=== PATIENT | female | born 1955 | race Caucasian/White ===

== ENCOUNTER 2017-02-01 20:46 | Emergency (ER) | payer OTHER ==
[2017-02-01 20:51] VITALS: BP 176/77; PULSE 85; RESP 18; TEMP 98.2
[2017-02-01] MEDS ORDERED: SULFAMETHOX-TMP 800-160MG 1 EACH TAB PO STA (20:58)
[2017-02-01] MEDS ORDERED: SULFAMETH-TMP DS STARTER PACK 2 TAB BTL PO STA (20:59)
[2017-02-01] MEDS ORDERED: CEPHALEXIN 500 MG CAP PO STA (20:59)
[2017-02-01] MEDS ORDERED: CEPHALEXIN 500MG STARTER PACK 4 CAP BTL PO STA (20:59)
--- NOTE | 2017-02-01 21:02 | ED ---
General Adult HPI - General Chief complaint: Extremity Problem,Nontraumatic Stated complaint: toe infection Time Seen by Provider: 02/01/17 20:51 Source: patient, RN notes reviewed, old records reviewed Mode of arrival: ambulatory Limitations: no limitations - History of Present Illness Initial comments: This is a 62-year-old female ER for evaluation of foot pain. Left foot pain. Left middle toe pain. Patient cyanosis pain mouth last week and then noticed severe pain starting today. No fevers. Patient has no history of diabetes no history of fever infections. Patient has no other complaints. Patient did notice travel history and stated that the travel the pain started to get worse that she was driving her car home. No sick contacts. No history of MRSA. - Related Data Home Medications Medication Instructions Recorded Confirmed Omeprazole [PriLOSEC] 20 mg PO AC-BRKFST PRN 05/19/15 05/19/15 Previous Rx's Medication Instructions Recorded Aspirin 325 mg PO DAILY #30 tab 05/21/15 Atorvastatin [Lipitor] 80 mg PO HS #30 tab 05/21/15 Clopidogrel [Plavix] 75 mg PO DAILY #30 tab 05/21/15 Lisinopril [Zestril] 2.5 mg PO DAILY@1200 #30 tab 05/21/15 Metoprolol Tartrate [Lopressor] 12.5 mg PO BID #60 tab 05/21/15 Nitroglycerin Sl Tabs [Nitrostat] 0.4 mg SUBLINGUAL Q5M PRN #25 tab 05/21/15 Cephalexin [Keflex] 500 mg PO Q8HR #30 cap 02/01/17 Sulfamethox-Tmp 800-160Mg [Bactrim 2 tab PO Q12HR #28 tab 02/01/17 DS 800-160 mg] Allergies Allergy/AdvReac Type Severity Reaction Status Date / Time aspirin AdvReac Nausea Verified 02/01/17 20:50 Review of Systems ROS Statement: Those systems with pertinent positive or pertinent negative responses have been documented in the HPI. ROS Other: All systems not noted in ROS Statement are negative. Past Medical History Past Medical History: Chest Pain / Angina, GERD/Reflux, Myocardial Infarction ( [place]) Additional Past Medical History / Comment(s): dx with and treated for TB History of Any Multi-Drug Resistant Organisms: None Reported Past Surgical History: Orthopedic Surgery Past Anesthesia/Blood Transfusion Reactions: No Reported Reaction Past Psychological History: No Psychological Hx Reported Smoking Status: Current every day smoker Past Alcohol Use History: Daily Additional Past Alcohol Use History / Comment(s): approx 5-8 beers per day Past Drug Use History: None Reported - Past Family History Mother History Unknown: Yes General Exam Limitations: no limitations General appearance: alert, in no apparent distress Head exam: Present: atraumatic, normocephalic, normal inspection Eye exam: Present: normal appearance, PERRL, EOMI. Absent: scleral icterus, conjunctival injection, periorbital swelling ENT exam: Present: normal exam, mucous membranes moist Neck exam: Present: normal inspection. Absent: tenderness, meningismus, lymphadenopathy Respiratory exam: Present: normal lung sounds bilaterally. Absent: respiratory distress, wheezes, rales, rhonchi, stridor Cardiovascular Exam: Present: regular rate, normal rhythm, normal heart sounds. Absent: systolic murmur, diastolic murmur, rubs, gallop, clicks GI/Abdominal exam: Present: soft, normal bowel sounds. Absent: distended, tenderness, guarding, rebound, rigid Extremities exam: Present: normal inspection, full ROM, normal capillary refill , other (Left great toe cellulitis with abscess, no streaking up foot). Absent : tenderness, pedal edema, joint swelling, calf tenderness Back exam: Present: normal inspection Neurological exam: Present: alert, oriented X3, CN II-XII intact Psychiatric exam: Present: normal affect, normal mood Skin exam: Present: warm, dry, intact, normal color. Absent: rash Course Vital Signs 02/01/17 20:47 Temperature 98.2 F Pulse Rate 85 Respiratory 18 Rate Blood Pressure 176/77 O2 Sat by Pulse 100 Oximetry - Reevaluation(s) Reevaluation #1: 02/01/17 21:01 Patient consult regarding wound care. Will return tomorrow if symptoms are not improving Procedures - Incision & Drainage Consent Obtained: verbal consent Time Out Performed?: Yes Site: foot I&D Cleaning Method: Betadine Scalpel Used: #11 Irrigation Performed?: Yes I&D Drainage Obtained: Pus, Blood Culture Obtained?: No Medical Decision Making - Medical Decision Making 59 female here with left toe infection, abscess with surrounding sialitis, patient will try outpatient therapy with dual antibiotics, abscess with incision incised and drained here in the emergency room. Patient will be discharged home Disposition Clinical Impression: Abscess of third toe, left, Cellulitis, toe Disposition: HOME SELF-CARE Condition: Good Instructions: Abscess (ED), Abscess Incision and Drainage (ED), Cellulitis (ED) , Acute Wound Care (ED) Prescriptions: Cephalexin [Keflex] 500 mg PO Q8HR #30 cap Sulfamethox-Tmp 800-160Mg [Bactrim DS 800-160 mg] 2 tab PO Q12HR #28 tab Referrals: Fei Traylor DO [Primary Care Provider] - 1-2 days
[2017-02-01] MEDS ORDERED: HYDROcodone/APAP 5-325MG 1 EACH TAB PO STA (21:15)
== END 2017-02-01 21:22 | disposition home or self-care (01) ==
LOC: EC 20:46
DX: L03.032 Cellulitis of left toe (principal); F17.200 Nicotine dependence, unspecified, uncomplicated; Z88.6 Allergy status to analgesic agent
CPT/HCPCS: 10060; 99283

== ENCOUNTER → 2023-10-13 | Outpatient (CLI) | payer MEDICARE ==
--- NOTE | 2023-10-14 13:37 | MM ---
Reason for Exam: Screening (asymptomatic). Patient History: Menarche at age 14. First Full-Term at age 20. Postmenopausal. Patient has history of breast feeding. Paternal aunt had breast cancer under age 50. Sister had breast cancer at or over age 50. Risk Values: Shelley 5 year model risk: 3.0%. NCI Lifetime model risk: 9.1%. Prior Study Comparison: No prior studies available for comparison. Tissue Density: There are scattered fibroglandular densities. Findings: Analyzed By CAD. There is no suspicious group of microcalcifications or new suspicious mass. Overall Assessment: Negative, BI-RAD 1 Management: Screening Mammogram of both breasts in [address] [facility] will attempt to contact patient to return for supplemental views and ultrasound if indicated. Patient should continue monthly self-breast exams. A clinical breast exam by your physician is recommended on an annual basis. This exam should not preclude additional follow-up of suspicious palpable abnormalities. Note on Shelley scores and lifetime risk: 1. A Shelley score greater than 3% is considered moderate risk. If this is the case, consider specialist referral to assess eligibility for a risk reducing agent. 2. If overall lifetime risk for the development of breast cancer is 20% or higher, the patient may qualify for future screening with alternating mammogram and breast MRI. Electronically signed and approved by: Vijay Ivan DO
== END | disposition home or self-care (01) ==
LOC: RADMAMWWP 08:30
PROVIDERS: ATTEND Family Medicine
DX: Z12.31 Encounter for screening mammogram for malignant neoplasm of breast (principal); Z80.3 Family history of malignant neoplasm of breast; Z78.0 Asymptomatic menopausal state
CPT/HCPCS: 77067

== ENCOUNTER → 2024-07-18 | Outpatient (CLI) | payer MEDICARE ==
[2024-07-18 15:22] LABS: ALT 11 U/L (8-44); AST 15 U/L (13-35); Chol/HDL Ratio 3.17 Ratio; LDL Cholesterol,Calculated 125.5 mg/dL (0.0-131.0)
== END | disposition home or self-care (01) ==
LOC: LABWHC1 11:39
PROVIDERS: ATTEND Internal Medicine Cardiovascular Disease
DX: E78.2 Mixed hyperlipidemia (principal)
CPT/HCPCS: 36415; 80061; 84450; 84460

== ENCOUNTER → 2024-09-15 | Outpatient (CLI) | payer MEDICARE ==
[2024-09-16 05:15] LABS: Appearance,Urine Cloudy (Clear); Bilirubin,Urine Negative (Negative); Blood,Urine Small (Negative); Color,Urine Yellow (Yellow); Ketones,Urine Negative (Negative); Nitrite,Urine Positive (Negative); PH, Urine 5.5; Specific Gravity,Urine 1.015 (1.001-1.030); Urobilinogen,Urine 0.2 E.U./DL
[2024-09-16 05:23] LABS: Bacteria,Urine 3+ (None Seen)
== END | disposition home or self-care (01) ==
LOC: LABWHC1 15:42
PROVIDERS: ATTEND Radiology Radiation Oncology
DX: C21.1 Malignant neoplasm of anal canal (principal)
CPT/HCPCS: 81001; 87086

== ENCOUNTER 2024-09-28 11:52 | Day surgery (SDC) | payer MEDICARE ==
[2024-09-27 08:39] VITALS: BMI 25.2
[~2024-09-28 11:52] MED LIST: Pre Op ABX Message 1 EACH MISC MISCELLANE ONE
[2024-09-28] MEDS: IV FLUID CONTINUATION 1,000 ML IV ONE (13:15)
[2024-09-28] MEDS: LACTATED RINGERS 1,000 ML BAG IV STA (13:17)
[2024-09-28] MEDS: ACETAMINOPHEN TAB 500 MG TAB PO PRN (13:18)
[2024-09-28] MEDS: ONDANSETRON 4 MG/2 ML VIAL IVP STA (13:19)
[2024-09-28] MEDS: FAMOTIDINE 20 MG/2 ML VIAL IV STA (13:20)
[2024-09-28] MEDS: DEXAMETHASONE SOD PHOSPHATE 4 MG/ML 1 ML VIAL IVP STA (13:20)
[2024-09-28] MEDS: HEPARIN SODIUM,PORCINE 5,000 UNIT/ML 1 ML VIAL SQ PRN (13:20)
--- NOTE | 2024-09-28 13:21 | P.GSHP ---
History of Present Illness H&P Date: 09/28/24 Chief Complaint: Anal cancer 69-year-old female known to our service. Patient recently diagnosed with fairly advanced anal cancer. Starting chemoradiation 1 week from now. Poor IV access. Past Medical History Past Medical History: Cancer, Chest Pain / Angina, GERD/Reflux, Myocardial Infarction ([place]) Additional Past Medical History / Comment(s): 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 Recent dx CA Last Myocardial Infarction Date:: May 19 2015 History of Any Multi-Drug Resistant Organisms: None Reported Past Surgical History: Heart Catheterization With Stent, Orthopedic Surgery Additional Past Surgical History / Comment(s): Colonscopy w/bx 08/2024, pins and plates left ankle Past Anesthesia/Blood Transfusion Reactions: No Reported Reaction Date of Last Stent Placement:: 2014 Smoking Status: Current every day smoker - Past Family History Sister(s) Family Medical History: Cancer, Hypertension Additional Family Medical History / Comment(s): Breast CA Mother History Unknown: Yes Medications and Allergies Home Medications Medication Instructions Recorded Confirmed Type Acetaminophen [Tylenol Extra 1,000 mg PO DAILY 09/27/24 09/28/24 History Strength] Allergies Allergy/AdvReac Type Severity Reaction Status Date / Time aspirin AdvReac Nausea Verified 09/27/24 08:31 Surgical - Exam Vital Signs Temp Pulse Resp BP Pulse Ox 98.1 F 90 20 150/67 99 09/28/24 12:56 09/28/24 12:56 09/28/24 12:56 09/28/24 12:56 09/28/24 12:56 Physical exam: General: Well-developed, well-nourished HEENT: Normocephalic, sclerae nonicteric Abdomen: Nontender, nondistended Extremities: No edema Neuro: Alert and oriented Assessment and Plan (1) Anal cancer Narrative/Plan: Will proceed with Port-A-Cath placement at this time. Risks of bleeding, infection, DVT, pneumothorax, catheter malfunction, anesthesia related complications were discussed. The patient understands and wishes to proceed. Current Visit: Yes Status: Acute Code(s): C21.0 - MALIGNANT NEOPLASM OF ANUS, UNSPECIFIED SNOMED Code(s): 935066281
[2024-09-28 13:23] LABS: Glucose,Whole Blood 101 mg/dL (70-110)
[2024-09-28] MEDS ORDERED: MIDAZOLAM 2 MG/2 ML VIAL ONE (13:24)
[2024-09-28] MEDS ORDERED: fentaNYL (PF) 50 MCG/ML 2 ML AMP ONE (13:24)
[2024-09-28] MEDS ORDERED: PROPOFOL 10 MG/ML 20 ML VIAL IV ONE (13:24)
[2024-09-28] MEDS ORDERED: LIDOCAINE 1% INJ 10MG/ML (20 ML MDV) ONE (13:24)
[2024-09-28] MEDS: SODIUM CHLORIDE 0.9% 50 ML with ceFAZolin 2,000 MG IV ONE (13:24)
[2024-09-28] MEDS: LIDOCAINE 1% INJ 10MG/ML (20 ML MDV) SQ ONE ×2 (13:42→13:58)
[2024-09-28] MEDS: HEPARIN SODIUM,PORCINE 100 UNIT/ML 5 ML VIAL IV ONE (13:53)
[2024-09-28] MEDS ORDERED: NALOXONE 0.4 MG/ML 1 ML VIAL IV PRN (14:15)
[2024-09-28] MEDS ORDERED: HYDROcodone/APAP 5-325MG 1 EACH TAB PO PRN (14:15)
--- NOTE | 2024-09-28 14:24 | P.OP ---
Date of Procedure: 09/28/24 Procedure(s) Performed: PREOPERATIVE DIAGNOSIS: Anal cancer POSTOPERATIVE DIAGNOSIS: Same PROCEDURE: Port-A-Cath placement with fluoroscopic and ultrasound guidance SURGEON: Wilfrid EBL: Minimal ANESTHESIA: General COMPLICATIONS: None OPERATIVE PROCEDURE: Patient was brought and placed on the operative table in the supine position. The patient was placed under general anesthesia at that time. The chest and neck were prepped and draped in usual sterile fashion. The ultrasound probe was used to identify the location of the right internal jugular vein. The skin was localized with lidocaine. The Seldinger needle was advanced into the IJ under ultrasound guidance. The wire was advanced through the needle under fluoroscopic guidance into the superior vena cava. A port pocket was created in the right infraclavicular location. The catheter was tunneled from the wire entrance site to the port pocket. The port was then connected to the catheter. The dilator introducer was threaded over the guidewire. The guidewire and dilator were then removed. The catheter was advanced through the introducer and introducer was then removed. The tip was seen to be in the right atrial junction via fluoroscopy. A picture of the radiograph showing the tip of the catheter was taken. Port was flushed with both saline and a Hep-Lock solution. There was good flow both in and out of the port. The port was sutured in underlying tissues using 3-0 silk sutures. The subcutaneous tissues were reapproximated using 3-0 Vicryl sutures and the skin at both locations using 4-0 Monocryl sutures. Skin glue and sterile dressings then applied. DISPOSITION: Stable to recovery room
--- NOTE | 2024-09-28 14:38 | FL ---
EXAMINATION TYPE: FL guided central line placemt DATE OF EXAM: 09/28/2024 2:19 PM COMPARISON: Pre Operative Images if available both CT/MRI or plain film CLINICAL INDICATION: Female, 69 years old with history of Port-A-Cath Insertion; TECHNIQUE: FL guided central line placemt, multiple fluoroscopic images provided for procedure. Total fluoroscopy time: 9.6 seconds Total submitted images to PACS: 1 DAP: [id number] mGym2 Gycm2 uGym2 cGycm2 or equivalent. FINDINGS: Fluoroscopic imaging for Port-A-Cath insertion no evidence for pneumothorax. Multilevel degeneration changes of the spine. IMPRESSION: 1. No evidence for intraoperative complication. 2. Please see the operative/procedural note for further details. [facility], Workstation: [facility], 09/28/2024 2:36 PM
[2024-09-28 14:49] VITALS: RESP 16; TEMP 97.2
[2024-09-28 15:27] VITALS: BP 128/68; PULSE 74
--- NOTE | 2024-09-28 15:41 | XR ---
EXAMINATION TYPE: XR chest 1V confirm line plcmt DATE OF EXAM: 09/28/2024 3:19 PM COMPARISON: Chest radiographs from 09/20/2017 CLINICAL INDICATION: Female, 69 years old with history of Check Line placement; TECHNIQUE: XR chest 1V confirm line plcmt Frontal view of the chest. FINDINGS: Lungs/Pleura: There is no evidence of pleural effusion, focal consolidation, or pneumothorax. Pulmonary vascularity: Unremarkable. Heart/mediastinum: Cardiomediastinal silhouette is unremarkable. Musculoskeletal: No acute osseous pathology. Other findings: None Lines/Tubes: [id number] projecting over the right hemithorax with distal tip projecting over the superior vena cava. IMPRESSION: No acute cardiopulmonary disease/process. [facility], Workstation: [facility], 09/28/2024 3:38 PM
== END 2024-09-28 15:37 | disposition home or self-care (01) ==
LOC: OR 11:52
PROVIDERS: ATTEND Surgery
DX: C21.0 Malignant neoplasm of anus, unspecified (principal); I25.2 Old myocardial infarction; K21.9 Gastro-esophageal reflux disease without esophagitis; F17.210 Nicotine dependence, cigarettes, uncomplicated; F10.90 Alcohol use, unspecified, uncomplicated; Z88.6 Allergy status to analgesic agent; Z95.5 Presence of coronary angioplasty implant and graft; Z79.1 Long term (current) use of non-steroidal anti-inflammatories (NSAID)
CPT/HCPCS: 77001; 36561; C1788; J2250; J1644; J1642; J1100; J2405; J0690; J2003; J3010; J3490; J2704

== ENCOUNTER → 2024-11-29 | Outpatient (CLI) | payer MEDICARE ==
[2024-11-29 18:10] LABS: African American GFR (CKD) >90 (>60 ml/min/1.73 sqM); Blood Urea Nitrogen 11 mg/dL (7-17); Non-African American GFR(CKD) 78 (>60 ml/min/1.73 sqM)
--- NOTE | 2024-12-03 10:19 | CT ---
EXAMINATION TYPE: CT soft tissue neck wo/w con DATE OF EXAM: 11/29/2024 6:47 PM COMPARISON: None. CLINICAL INDICATION: Female, 69 years old with history of C21.8, C21.1, swelling to left side of neck , history of anal cancer TECHNIQUE: Axial images at 3 mm thick sections. Reconstructed images in the coronal plane and sagitt al plane are reviewed. Contrast used:100 mL of Isovue 300 without and with IV Contrast, (none if empty) Oral contrast used: (none if empty) CT DLP: 644.4 mGycm, Automated exposure control for dose reduction was used. FINDINGS: Limited CT sections are obtained the lung apices. Emphysematous changes are present. Scarring may be present in the right apex measuring 1.7 x 0.7 cm. Example series [address] neck: The torus tubarius and fossa of Rosenmuller are normal. Furniture Removalist spaces are normal. Adeno id may be prominent. There are some hypodense area could be related to lymphadenopathy in Waldeyer's ring. Paranasal sinuses and mastoid air cells are clear. Parotid glands appear normal and symmetrical. Submandibular glands, are normal. Parapharyngeal spac es are normal. No suspicious adenopathy is evident. The hypopharynx appears within normal limits. Tracheobronchial tree appears normal Vocal cord level appear symmetrical. Thyroid as visualized is normal. Degenerative disc changes present through the cervical spine. Vertebral body heights are preserved. IMPRESSION: 1. There is some fullness of the adenoid and possible lymphadenopathy. Direct visualization recommend ed. 2. No suspicious abnormality within the left neck to account for swelling. [facility], , 12/03/2024 10:16 AM
== END | disposition home or self-care (01) ==
LOC: RADCTMAIN 17:22
PROVIDERS: ATTEND Radiology Radiation Oncology
DX: C21.8 Malignant neoplasm of overlapping sites of rectum, anus and anal canal (principal); C21.1 Malignant neoplasm of anal canal; C77.9 Secondary and unspecified malignant neoplasm of lymph node, unspecified
CPT/HCPCS: 82565; 84520; 70492; 36415; Q9967

== ENCOUNTER 2024-12-29 16:57 | Observation (INO) | payer MEDICARE, OTHER ==
--- NOTE | 2024-12-29 18:31 | ED ---
General Adult HPI - General Chief complaint: Chest Pain Stated complaint: Unwell Time Seen by Provider: 12/29/24 18:02 Source: patient, EMS Mode of arrival: EMS Limitations: no limitations - History of Present Illness Initial comments: Dictation was produced using [employer] dictation software. please excuse any grammatical, word or spelling errors. Chief Complaint: 69-year-old female with anal cancer presents to the ER for chest heaviness History of Present Illness: Patient 69-year-old female has been dealing with respiratory infectious type issues for the last several days. She was not feeling well and had some chest pressure today. States it is a pressure in her chest. No history of coronary artery disease. She has had chemotherapy recently. No associated diaphoresis or nausea. She does report having a coronary artery stent. Recently had a stress test earlier in the year that was found to be unremarkable. Went to the walk-in clinics told to come to the ER for further care. Apparently patient has had low hemoglobin recently. Is not clear patient recently had a infusion. The ROS documented in this emergency department record has been reviewed and confirmed by me. Those systems with pertinent positive or negative responses h ave been documented in the HPI. All other systems are other negative and/or noncontributory. - Related Data Home Medications Medication Instructions Recorded Confirmed HYDROcodone/APAP 5-325MG [[place] 1 tab PO QID 12/29/24 12/29/24 5-325] Allergies Allergy/AdvReac Type Severity Reaction Status Date / Time aspirin AdvReac Nausea Verified 12/29/24 19:07 Review of Systems ROS Statement: Those systems with pertinent positive or pertinent negative responses have been documented in the HPI. ROS Other: All systems not noted in ROS Statement are negative. 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 Recent dx Anal Cancer Last Myocardial Infarction Date:: May 19 2015 History of Any Multi-Drug Resistant Organisms: None Reported Past Surgical History: Heart Catheterization With Stent, Orthopedic Surgery Additional Past Surgical History / Comment(s): Colonscopy w/bx 08/2024, pins and plates left ankle Past Anesthesia/Blood Transfusion Reactions: No Reported Reaction Date of Last Stent Placement:: 2014 Past Psychological History: No Psychological Hx Reported Smoking Status: Current every day smoker Past Alcohol Use History: None Reported Past Drug Use History: None Reported - Past Family History Sister(s) Family Medical History: Cancer, Hypertension Additional Family Medical History / Comment(s): Breast CA Mother History Unknown: Yes General Exam - General Exam Comments Initial Comments: PHYSICAL EXAM: General Impression: Alert and oriented x3, not in acute distress HEENT: Normocephalic atraumatic, extra-ocular movements intact, pupils equal and reactive to light bilaterally, mucous membranes moist. Cardiovascular: Heart regular rate and rhythm Chest: Able to complete full sentences, no retractions, no tachypnea, diffuse lung rhonchi Abdomen: abdomen soft, non-tender, non-distended, no organomegaly Musculoskeletal: Pulses present and equal in all extremities, no peripheral edema Motor: no focal deficits noted Neurological: CN II-XII grossly intact, no focal motor or sensory deficits noted Skin: Intact with no visualized rashes Psych: Normal affect and mood Limitations: no limitations Course Vital Signs 12/29/24 12/29/24 17:35 20:13 Temperature 97.8 F Pulse Rate 87 89 Respiratory 18 20 Rate Blood Pressure 131/73 129/66 O2 Sat by Pulse 93 L 94 L Oximetry Medical Decision Making - Medical Decision Making Was pt. sent in by a medical professional or institution ([facility], [facility], urgent care, hospital, or detention...) When possible be specific @ -[No] Did you speak to anyone other than the patient for history (EMS, parent, family, police, friend...)? What history was obtained from this source @ -[No] Did you review nursing and triage notes (agree or disagree)? Why? @ -[I reviewed and agree with nursing and triage notes] Were old charts reviewed (outside hosp., previous admission, EMS record, old EKG, old radiological studies, urgent care reports/EKG's, detention records)? Report findings @ -[No old charts were reviewed] Differential Diagnosis (chest pain, altered mental status, abdominal pain women, abdominal pain men, vaginal bleeding, musculoskeletal, weakness, fever, dyspnea, syncope, headache, dizziness, GI bleed, back pain, seizure, CVA, palpatations, mental health)? @ -Differential Chest Pain: Stable Angina, Unstable Angina, STEMI, NSTEMI Aortic Dissection, Pneumothorax, Musculoskeletal, Esophageal Spasm GERD, Cholecystitis, Pancreatitis, Zoster, this is not meant to be an all-inclusive list. EKG interpreted by me (3pts min.). @ -My EKG interpretation: Ventricular rate 86, sinus rhythm, NJ 159, QRS 81, QTc 428. No NJ prolongation, no QTC prolongation, no ST or T-wave changes noted. Overall, this EKG is unremarkable X-rays interpreted by me (1pt min.). @ -Chest x-ray shows airspace opacities concerning for pneumonia CT interpreted by me (1pt min.). @ -[None done] U/S interpreted by me (1pt. min.). @ -[None done] What testing was considered but not performed or refused? (CT, X-rays, U/S, labs)? Why? @ -[None] What meds were considered but not given or refused? Why? @ -[None] Was smoking cessation discussed for >3mins.? @ -[No] Were there social determinants of health that impacted care today? How? (Homelessness, low income, unemployed, alcoholism, drug addiction, transportation, low edu. Level, literacy, decrease access to med. care, assisted, rehab)? @ -[No] Was there de-escalation of care discussed even if they declined (Discuss DNR or withdrawal of care, Hospice)? DNR status @ -[No] What co-morbidities impacted this encounter? (DM, HTN, Smoking, COPD, CAD, Cancer, CVA, ARF, Chemo, Hep., AIDS, mental health diagnosis, sleep apnea, morbid obesity)? @ -Anal cancer on chemotherapy Was patient admitted / discharged? Hospital course, mention meds given and route, prescriptions, significant lab abnormalities, going to OR and other pertinent info. @ -69-year-old female with atypical chest pain typical features. She does have history of cardiac disease. Describes chest pain as pressure. Patient has high heart score. Vital signs stable. EKG is unremarkable. Laboratory evaluation is unremarkable. Troponin is negative. Influenza A is positive. Patient symptomatic for more than 3 days. Not a candidate for Tamiflu. She does have infiltrate on her lungs causing concern for post viral pneumonia. Patient treated with antibiotics. Patient given aspirin will be admitted observation. Case discussed with hospitalist for admission. Did you discuss the management of the patient with other professionals (professionals i.e. , PA, FILLER WIPER, lab, RT, psych nurse, social media content specialist, parts sales representative, teacher, bank officer, registered nurse hh case manager)? Give summary @ -See above Was critical care preformed (if so, how long)? @ -[No] Undiagnosed new problem with uncertain prognosis? @ -[No] Drug Therapy requiring intensive monitoring for toxicity (Heparin, Nitro, Insulin, Cardizem)? @ -[No] Were any procedures done? @ -[No] Diagnosis/symptom? Acute, or Chronic, or Acute on Chronic? Uncomplicated (without systemic symptoms) or Complicated (systemic symptoms)? @ -Chest pain, influenza Side effects of treatment? @ -[No] Exacerbation, Progression, or Severe Exacerbation? @ -[No] Poses a threat to life or bodily function? How? (Chest pain, USA, CT, pneumonia, PE, COPD, DKA, ARF, appy, cholecystitis, CVA, Diverticulitis, Homicidal, Alicia icidal, threat to staff... and all critical care pts) @ -yes - Lab Data Result diagrams: 12/29/24 18:45 12/29/24 18:45 Lab Results 12/29/24 12/29/24 12/29/24 Range/Units 18:45 18:45 18:45 WBC 3.5 L (3.8-10.6) k/uL RBC 3.77 L (3.80-5.40) m/uL Hgb 10.9 L (11.4-16.0) gm/dL Hct 34.4 (34.0-46.0) % MCV 91.4 (80.0-100.0) fL MCH 29.0 (25.0-35.0) pg MCHC 31.7 (31.0-37.0) g/dL RDW 18.8 H (11.5-15.5) % Plt Count 295 D (150-450) k/uL MPV 7.6 Neutrophils % 64 % Lymphocytes % 20 % Monocytes % 10 % Eosinophils % 1 % Basophils % 0 % Neutrophils # 2.2 (1.3-7.7) k/uL Lymphocytes # 0.7 L (1.0-4.8) k/uL Monocytes # 0.4 (0-1.0) k/uL Eosinophils # 0.0 (0-0.7) k/uL Basophils # 0.0 (0-0.2) k/uL Anisocytosis Slight PT 10.5 (10.0-12.5) sec INR 0.9 (<1.2) APTT 22.8 (22.0-30.0) sec Sodium 132 L (137-145) mmol/L Potassium 4.6 (3.5-5.1) mmol/L Chloride 99 (98-107) mmol/L Carbon Dioxide 22 (22-30) mmol/L Anion Gap 11 mmol/L BUN 11 (7-17) mg/dL Creatinine 0.81 (0.52-1.04) mg/dL Est GFR (CKD-EPI)AfAm 86 (>60 ml/min/1.73 sqM) Est GFR (CKD-EPI)NonAf 74 (>60 ml/min/1.73 sqM) Glucose 84 (74-99) mg/dL Calcium 9.5 (8.4-10.2) mg/dL Magnesium 1.8 (1.6-2.3) mg/dL Total Bilirubin 0.5 (0.2-1.3) mg/dL AST 21 (14-36) U/L ALT 16 (4-34) U/L Alkaline Phosphatase 76 (38-126) U/L Troponin I (0.000-0.034) ng/mL Total Protein 6.6 (6.3-8.2) g/dL Albumin 3.9 (3.5-5.0) g/dL Influenza Type A (PCR) (Not Detectd) Influenza Type B (PCR) (Not Detectd) RSV (PCR) (Not Detectd) SARS-CoV-2 (PCR) (Not Detectd) 12/29/24 12/29/24 Range/Units 18:45 18:45 WBC (3.8-10.6) k/uL RBC (3.80-5.40) m/uL Hgb (11.4-16.0) gm/dL Hct (34.0-46.0) % MCV (80.0-100.0) fL MCH (25.0-35.0) pg MCHC (31.0-37.0) g/dL RDW (11.5-15.5) % Plt Count (150-450) k/uL MPV Neutrophils % % Lymphocytes % % Monocytes % % Eosinophils % % Basophils % % Neutrophils # (1.3-7.7) k/uL Lymphocytes # (1.0-4.8) k/uL Monocytes # (0-1.0) k/uL Eosinophils # (0-0.7) k/uL Basophils # (0-0.2) k/uL Anisocytosis PT (10.0-12.5) sec INR (<1.2) APTT (22.0-30.0) sec Sodium (137-145) mmol/L Potassium (3.5-5.1) mmol/L Chloride (98-107) mmol/L Carbon Dioxide (22-30) mmol/L Anion Gap mmol/L BUN (7-17) mg/dL Creatinine (0.52-1.04) mg/dL Est GFR (CKD-EPI)AfAm (>60 ml/min/1.73 sqM) Est GFR (CKD-EPI)NonAf (>60 ml/min/1.73 sqM) Glucose (74-99) mg/dL Calcium (8.4-10.2) mg/dL Magnesium (1.6-2.3) mg/dL Total Bilirubin (0.2-1.3) mg/dL AST (14-36) U/L ALT (4-34) U/L Alkaline Phosphatase (38-126) U/L Troponin I <0.012 (0.000-0.034) ng/mL Total Protein (6.3-8.2) g/dL Albumin (3.5-5.0) g/dL Influenza Type A (PCR) Detected A (Not Detectd) Influenza Type B (PCR) Not Detected (Not Detectd) RSV (PCR) Not Detected (Not Detectd) SARS-CoV-2 (PCR) Not Detected (Not Detectd) Disposition Clinical Impression: Chest pain, Pneumonia Disposition: ADMITTED IP TO THIS HOSP Condition: Fair Referrals: Kendall Mojica MD [Primary Care Provider] - 1-2 days Decision Time: 21:51
[2024-12-29 19:04] LABS: INR 0.9 (<1.2); Prothrombin Time 10.5 sec (10.0-12.5)
--- NOTE | 2024-12-29 19:04 | XR ---
EXAMINATION TYPE: XR chest 2V DATE OF EXAM: 12/29/2024 6:52 PM COMPARISON: Chest radiographs from 11/19/2024 TECHNIQUE: XR chest 2V Frontal and lateral views of the chest. CLINICAL INDICATION:Female, 69 years old with history of Chest Pain; FINDINGS: Lungs/Pleura: There is no evidence of pleural effusion or pneumothorax. Right basilar patchy airspac e opacities. Elevation of left hemidiaphragm. Pulmonary vascularity: Unremarkable. Heart/mediastinum: Cardiomediastinal silhouette is unremarkable. Musculoskeletal: Multiple level degenerative disc disease changes seen throughout the spine. Lines/Tubes: Right chest Mediport catheter with IJ approach terminating in the high SVC in stable pos ition. IMPRESSION: Elevation of the left hemidiaphragm with right basilar patchy airspace opacities concerning for pneum onia versus atelectasis. [facility], , 12/29/2024 7:02 PM
[2024-12-29 19:05] LABS: Partial Thromboplastin Time 22.8 sec (22.0-30.0)
[2024-12-29 19:07] LABS: ALT 16 U/L (4-34); AST 21 U/L (14-36); African American GFR (CKD) 86 (>60 ml/min/1.73 sqM); Albumin 3.9 g/dL (3.5-5.0); Alkaline Phosphatase 76 U/L (38-126); Anion Gap 11 mmol/L; Blood Urea Nitrogen 11 mg/dL (7-17); Calcium 9.5 mg/dL (8.4-10.2); Carbon Dioxide 22 mmol/L (22-30); Chloride 99 mmol/L (98-107); Glucose 84 mg/dL (74-99); Magnesium 1.8 mg/dL (1.6-2.3); Non-African American GFR(CKD) 74 (>60 ml/min/1.73 sqM); Potassium 4.6 mmol/L (3.5-5.1); Sodium 132 mmol/L (137-145); Total Bilirubin 0.5 mg/dL (0.2-1.3); Total Protein 6.6 g/dL (6.3-8.2)
[2024-12-29 19:13] LABS: Anisocytosis Slight; Basophils % (A) 0 %; Eosinophils % (A) 1 %; HCT 34.4 % (34.0-46.0); HGB 10.9 gm/dL (11.4-16.0); Lymphocytes # (A) 0.7 k/uL (1.0-4.8); Lymphocytes % (A) 20 %; MCHC 31.7 g/dL (31.0-37.0); MCV 91.4 fL (80.0-100.0); Mean Platelet Volume 7.6; Monocytes # (A) 0.4 k/uL (0-1.0); Monocytes % (A) 10 %; Neutrophils # (A) 2.2 k/uL (1.3-7.7); Neutrophils % (A) 64 %; RBC 3.77 m/uL (3.80-5.40); RDW 18.8 % (11.5-15.5); WBC 3.5 k/uL (3.8-10.6)
[2024-12-29 19:17] LABS: Platelet Count 295 k/uL (150-450)
[2024-12-29 19:31] LABS: Influenza A Detected (Not Detectd); Influenza B Not Detected (Not Detectd); RSV Not Detected (Not Detectd)
[2024-12-29] MEDS ORDERED: NITROGLYCERIN SL TABS 0.4 MG TAB SUBLINGUAL PRN (21:45)
[2024-12-29] MEDS: ASPIRIN 81 MG PO STA (22:10)
[2024-12-29] MEDS: cefTRIAXone IN SWFI 1,000 MG/10 ML SYRINGE IVP STA (22:12)
[2024-12-29] MEDS: AZITHROMYCIN 500 MG in SODIUM CHLORIDE 0.9% 250 ML IVPB STA (23:05)
[2024-12-30] MEDS ORDERED: BENZOCAINE/MENTHOL LOZENG 1 EACH LOZENGE MUCOUS MEM PRN (00:31)
[2024-12-30] MEDS ORDERED: ACETAMINOPHEN TAB 325 MG TAB PO PRN (00:31)
[2024-12-30] MEDS ORDERED: NALOXONE 0.4 MG/ML 1 ML VIAL IV PRN (00:31)
[2024-12-30] MEDS ORDERED: ALPRAZolam 0.25 MG TAB PO PRN (00:31)
[2024-12-30] MEDS ORDERED: PNEUMONIA PROTOCOL UTILIZED 1 EACH MISC PO PRN (00:31)
[2024-12-30] MEDS ORDERED: HYDROcodone/APAP 5-325MG 1 EACH TAB PO PRN (00:31)
[2024-12-30] MEDS ORDERED: DOCUSATE 100 MG CAP PO PRN (00:31)
[2024-12-30] MEDS ORDERED: ONDANSETRON 4 MG/2 ML VIAL IVP PRN (00:31)
[2024-12-30] MEDS ORDERED: IPRATROPIUM-ALBUTEROL 3 ML NEB INHALATION PRN (00:31)
[2024-12-30] MEDS ORDERED: MELATONIN 3 MG TABLET PO PRN (00:31)
[2024-12-30] MEDS ORDERED: BENZONATATE 100 MG CAP PO PRN (00:35)
[2024-12-30] MEDS ORDERED: DEXTROSE 5%-0.45% NACL 1,000 ML IV SCH (00:45)
--- NOTE | 2024-12-30 00:45 | P.HPIM ---
History of Present Illness H&P Date: 12/29/24 Chief Complaint: Pleuritic chest pain 69-year-old female CAD status post stents history of rectal cancer Coming in for evaluation of pleuritic chest pain she reports that 3 weeks ago she had upper respiratory infection symptoms with sore throat muscle aches felt very sick coughing runny nose and then this got worse later became associated with productive cough chest congestion for the past 10 days and over the past few days he started started experiencing pleuritic chest pain with coughing and deep breaths she has not seen a doctor meanwhile and she was self managing with [id number] meds she denies any recent travel denies any known sick contacts denies any history of blood clots Patient does admit to smoking she uses no home oxygen Patient denies illicit drugs or heavy alcohol review of systems Pertinent positives as noted in HPI. All other systems were reviewed and are negative on exam Constitutional: No acute distress, conversant, pleasant Eyes: Anicteric sclerae, moist conjunctiva, Pupils equal round reactive to light ENMT: NC/AT Oropharynx clear, no erythema, or exudates Neck: Supple, no masses, or JVD No carotid bruits No thyromegaly Lungs: Decreased breath sounds throughout with expiratory wheezing Clear to percussion Normal respiratory effort, no accessory muscle use Cardiovascular: Heart regular in rate and rhythm, No murmurs, gallops, or rubs No peripheral edema Abdominal: Soft Nontender, no guarding, rebound or rigidity Abdomen moving with respiration Normoactive bowel sounds Extremities: No digital cyanosis No clubbing Pedal pulses intact and symmetrical Radial pulses intact and symmetrical No calf tenderness Psychiatric: Alert and oriented to person, place and time Appropriate affect fair judgement Neuro Muscles Strength 5/5 in all 4 extremities Sensation to light touch grossly present throughout Cranial nerves II-XII grossly intact Past Medical History Past Medical History: Cancer, Chest Pain / Angina, GERD/Reflux, Myocardial Infarction ([place]) Additional Past Medical History / Comment(s): 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 Recent dx Anal Cancer Last Myocardial Infarction Date:: May 19 2015 History of Any Multi-Drug Resistant Organisms: None Reported Past Surgical History: Heart Catheterization With Stent, Orthopedic Surgery Additional Past Surgical History / Comment(s): Colonscopy w/bx 08/2024, pins and plates left ankle Past Anesthesia/Blood Transfusion Reactions: No Reported Reaction Date of Last Stent Placement:: 2014 Past Psychological History: No Psychological Hx Reported Smoking Status: Current every day smoker Past Alcohol Use History: None Reported Additional Past Alcohol Use History / Comment(s): Smokes 2-3 cigs per day Past Drug Use History: None Reported - Past Family History Sister(s) Family Medical History: Cancer, Hypertension Additional Family Medical History / Comment(s): Breast CA Mother History Unknown: Yes Medications and Allergies Home Medications Medication Instructions Recorded Confirmed Type HYDROcodone/APAP 5-325MG [[place] 1 tab PO QID 12/29/24 12/29/24 History 5-325] Allergies Allergy/AdvReac Type Severity Reaction Status Date / Time aspirin AdvReac Nausea Verified 12/29/24 19:07 Physical Exam Vitals: Vital Signs Temp Pulse Pulse Resp BP BP Pulse Ox 12/30/24 00:05 97.8 F 91 18 123/68 95 12/29/24 23:11 92 20 126/72 95 12/29/24 22:08 97.4 F L 79 20 171/78 95 12/29/24 20:13 89 20 129/66 94 L 12/29/24 17:35 97.8 F 87 18 131/73 93 L Intake and Output 12/29/24 12/29/24 12/30/24 14:59 22:59 06:59 Other: Weight 62.142 kg 62.142 kg Results CBC & Chem 7: 12/29/24 18:45 12/29/24 18:45 Labs: Abnormal Lab Results - Last 24 Hours (Table) 12/29/24 12/29/24 12/29/24 Range/Units 18:45 18:45 18:45 WBC 3.5 L (3.8-10.6) k/uL RBC 3.77 L (3.80-5.40) m/uL Hgb 10.9 L (11.4-16.0) gm/dL RDW 18.8 H (11.5-15.5) % Lymphocytes # 0.7 L (1.0-4.8) k/uL Sodium 132 L (137-145) mmol/L Influenza Type A (PCR) Detected A (Not Detectd) Thrombosis Risk Factor Assmnt - Choose All That Apply Any of the Below Risk Factors Present?: Yes Each Factor Represents 1 point: Acute [place] Other Risk Factors: Yes Each Risk Factor Represents 2 Points: Age 61-74 years Other congenital or acquired thrombophilia - If yes, enter type in comment: No Thrombosis Risk Factor Assessment Total Risk Factor Score: 3 Thrombosis Risk Factor Assessment Level: Moderate Risk Assessment and Plan Assessment: 69-year-old female with CAD status post stent, rectal cancer coming in for pleuritic chest pain I discussed case with ED doctor and accepted the admission for community-acquired pneumonia with anticipated length of stay more than 2 midnights Community-acquired pneumonia Follow-up cultures Urine Legionella antigen Sputum cultures Patient started on Rocephin 2 g IV piggyback daily Azithromycin 500 mg p.o. daily Chest x-ray showed small area of pulmonary infiltrates right lower lung Influenza A positive however patient reports symptoms of upper respiratory infection for the past 3 weeks Tylenol 650 mg as needed every 6 hours for fever Symptomatic control with Tessalon Perles as needed for coughing Troponins negative EKG no acute ST changes Clinical COPD Patient counseled to quit smoking DuoNebs every 2 hours as needed for shortness of breath Supplemental oxygen as needed Anemia Patient denies GI bleeding Hemoglobin 10.9 which is better than her most recent baseline Continue to monitor for any evidence of bleeding Hyponatremia Start patient on normal saline 75 cc/h if sodium worsens consider stopping due to possibility of SIADH secondary to pneumonia Renal function unremarkable BUN 11 creatinine 0.8 Full code DVT prophylaxis Lovenox subcu 40 mg daily
--- NOTE | 2024-12-30 03:44 | XR ---
EXAM: XR Chest, 2 Views CLINICAL HISTORY: ITS.REASON XR Reason: Pneumonia TECHNIQUE: Frontal and lateral views of the chest. COMPARISON: No relevant prior studies available. FINDINGS: Lungs: No consolidation or mass. Pleural space: Trace left effusion Heart: No cardiomegaly. Bones/joints: No acute findings. IMPRESSION: Trace left effusion
[2024-12-30] MEDS: SODIUM CHLORIDE 0.9% 1,000 ML IV SCH (06:13)
[2024-12-30] MEDS ORDERED: ASPIRIN 325 MG TAB PO SCH (09:00)
[2024-12-30] MEDS: ATORVASTATIN 40 MG TAB PO SCH (09:30)
[2024-12-30] MEDS: ASPIRIN 81 MG PO SCH (09:30)
[2024-12-30] MEDS: NICOTINE 14MG/24HR PATCH TRANSDERM SCH (09:31)
[2024-12-30] MEDS: ENOXAPARIN 40 MG/0.4 ML SYRINGE SQ SCH (09:31)
[2024-12-30 10:24] LABS: Chol/HDL Ratio 3.95 Ratio; LDL Cholesterol,Calculated 89.1 mg/dL (0.0-131.0)
[2024-12-30] MEDS: methylPREDNISolone SOD SUCCI 125 MG/2 ML VIAL IV STA (10:26)
[2024-12-30 10:48] LABS: Anisocytosis Slight; HCT 32.4 % (34.0-46.0); HGB 10.3 gm/dL (11.4-16.0); MCH 29.6 pg (25.0-35.0); MCV 92.6 fL (80.0-100.0); Mean Platelet Volume 7.4; Platelet Count 321 k/uL (150-450); RDW 18.9 % (11.5-15.5); WBC 3.4 k/uL (3.8-10.6)
[2024-12-30 10:59] LABS: African American GFR (CKD) >90 (>60 ml/min/1.73 sqM); Anion Gap 6 mmol/L; Blood Urea Nitrogen 11 mg/dL (7-17); Calcium 9.1 mg/dL (8.4-10.2); Carbon Dioxide 25 mmol/L (22-30); Chloride 103 mmol/L (98-107); Glucose 110 mg/dL (74-99); Non-African American GFR(CKD) 81 (>60 ml/min/1.73 sqM); Sodium 134 mmol/L (137-145)
[2024-12-30] MEDS: AZITHROMYCIN 500 MG TAB PO SCH (12:53)
[2024-12-30 14:22] VITALS: BP 148/77; PULSE 87; RESP 15; TEMP 97.5
--- NOTE | 2024-12-30 14:47 | P.CRDCN ---
History of Present Illness Consult date: 12/30/24 Consult reason: chest pain History of present illness: The patient is a 69-year-old female who presented to the hospital with worsening shortness of breath and chest discomfort. She states this had been ongoing for several days, with also symptoms of a cough. Patient has tested positive for influenza A. DIAGNOSTICS: EKG shows sinus rhythm with no acute ST or T wave abnormalities Chest x-ray shows right basilar patchy airspace opacities concerning for pneumonia versus atelectasis Lab data: WBC 3.4, hemoglobin 10.3, hematocrit 32.4, platelet 321, sodium 134, potassium 4.0, BUN 11, creatinine 0.75, magnesium 1.8, AST 21, ALT 16, troponins negative x 3, triglycerides 193, LDL 89, HDL 43, positive for influenza A REVIEW OF SYSTEMS: No fever or chills. No cough or expectoration. No diaphoresis. Patient denies headache, dizziness, blurred vision, double vision. Patient denies any stomach discomfort. No nausea, vomiting. No hematochezia. No hematemesis. Denies any black stools or blood in his stools. Denies dysuria or hematuria. No muscle weakness or numbness. PHYSICAL EXAMINATION: This is a 69-year-old female in no apparent distress at the time of my examination. HEENT: Head is atraumatic, normocephalic. Pupils are equal, round. Sclerae anicteric. Conjunctivae are clear. Mucous membranes of the mouth are moist. Neck is supple. There is no jugular venous distention. No carotid bruit is heard. CHEST EXAMINATION: Lungs are diminished to auscultation. No chest wall tenderness is noted on palpation or with deep breathing. HEART EXAMINATION: Heart regular rate and rhythm. S1, S2 heard. No murmurs, gallops or rub. ABDOMEN: Soft, nontender. Bowel sounds are heard. No organomegaly noted. EXTREMITIES: 2+ peripheral pulses with no evidence of peripheral edema and no calf tenderness noted. NEUROLOGIC EXAMINATION: Patient is awake, alert and oriented x3. FINAL ASSESSMENT AND PLAN: Chest discomfort, ACS workup unremarkable Positive for influenza A Community-acquired pneumonia History of CAD History of COPD plan current smoker PLAN: Switch to aspirin 81 mg daily Discharge home on atorvastatin 40mg Follow-up in 1 week with primary physical damage appraiser Dr. Trimble I am dictating on behalf of Dr Kemar Milian's history/physical and assessment/plan. 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 Recent dx Anal Cancer Last Myocardial Infarction Date:: May 19 2015 History of Any Multi-Drug Resistant Organisms: None Reported Past Surgical History: Heart Catheterization With Stent, Orthopedic Surgery Additional Past Surgical History / Comment(s): Colonscopy w/bx 08/2024, pins and plates left ankle Past Anesthesia/Blood Transfusion Reactions: No Reported Reaction Date of Last Stent Placement:: 2014 Past Psychological History: No Psychological Hx Reported Smoking Status: Current every day smoker Past Alcohol Use History: None Reported Additional Past Alcohol Use History / Comment(s): Smokes 2-3 cigs per day Past Drug Use History: None Reported - Past Family History Sister(s) Family Medical History: Cancer, Hypertension Additional Family Medical History / Comment(s): Breast CA Mother History Unknown: Yes Medications and Allergies Home Medications Medication Instructions Recorded Confirmed Type HYDROcodone/APAP 5-325MG [[place] 1 tab PO QID 12/29/24 12/29/24 History 5-325] Allergies Allergy/AdvReac Type Severity Reaction Status Date / Time aspirin AdvReac Nausea Verified 12/29/24 19:07 Physical Exam Vitals: Vital Signs Temp Pulse Pulse Resp BP BP Pulse Ox 12/30/24 07:00 98.0 F 78 17 139/84 90 L 12/30/24 02:16 82 17 12/30/24 01:23 97.9 F 82 17 117/68 93 L 12/30/24 00:05 97.8 F 91 18 123/68 95 12/29/24 23:11 92 20 126/72 95 12/29/24 22:08 97.4 F L 79 20 171/78 95 12/29/24 20:13 89 20 129/66 94 L 12/29/24 17:35 97.8 F 87 18 131/73 93 L Intake and Output 12/29/24 12/30/24 12/30/24 22:59 06:59 14:59 Other: Voiding Method Toilet # Voids 1 Weight 62.142 kg 62.142 kg Results 12/30/24 10:32 12/30/24 10:32 Cardiac Enzymes 12/29/24 12/29/24 12/29/24 Range/Units 18:45 18:45 22:32 AST 21 (14-36) U/L Troponin I <0.012 <0.012 (0.000-0.034) ng/mL 12/30/24 Range/Units 02:14 AST (14-36) U/L Troponin I <0.012 (0.000-0.034) ng/mL Coagulation 12/29/24 Range/Units 18:45 PT 10.5 (10.0-12.5) sec APTT 22.8 (22.0-30.0) sec CBC 12/29/24 Range/Units 18:45 WBC 3.5 L (3.8-10.6) k/uL RBC 3.77 L (3.80-5.40) m/uL Hgb 10.9 L (11.4-16.0) gm/dL Hct 34.4 (34.0-46.0) % Plt Count 295 D (150-450) k/uL Comprehensive Metabolic Panel 12/29/24 Range/Units 18:45 Sodium 132 L (137-145) mmol/L Potassium 4.6 (3.5-5.1) mmol/L Chloride 99 (98-107) mmol/L Carbon Dioxide 22 (22-30) mmol/L BUN 11 (7-17) mg/dL Creatinine 0.81 (0.52-1.04) mg/dL Glucose 84 (74-99) mg/dL Calcium 9.5 (8.4-10.2) mg/dL AST 21 (14-36) U/L ALT 16 (4-34) U/L Alkaline Phosphatase 76 (38-126) U/L Total Protein 6.6 (6.3-8.2) g/dL Albumin 3.9 (3.5-5.0) g/dL Current Medications Generic Name Dose Route Start Last Admin Trade Name Freq PRN Reason Stop Dose Admin Acetaminophen 650 mg 12/30/24 00:31 Acetaminophen Tab 325 Mg Tab PO Q6HR PRN Mild Pain or Fever > 100.5 Hydrocodone Bitart/Acetaminophen 1 each 12/30/24 00:31 Hydrocodone/Apap 5-325mg 1 Each Tab PO Q4HR PRN Moderate Pain (Scale 4 to 6) Albuterol/Ipratropium 3 ml 12/30/24 00:31 Ipratropium-Albuterol 3 Ml Neb INHALATION RT-Q2H PRN Shortness Of Breath Or Wheezing Alprazolam 0.25 mg 12/30/24 00:31 Alprazolam 0.25 Mg Tab PO Q6HR PRN Anxiety Azithromycin 500 mg 12/31/24 09:00 Azithromycin 500 Mg Tab PO 01/01/25 09:01 DAILY [facility] Protocol Benzocaine/Menthol 1 each 12/30/24 00:31 Benzocaine/Menthol Lozeng 1 Each Lozenge MUCOUS MEM Q4HR PRN Sore Throat Benzonatate 200 mg 12/30/24 00:35 Benzonatate 100 Mg Cap PO TID PRN Cough Docusate Sodium 100 mg 12/30/24 00:31 Docusate 100 Mg Cap PO BID PRN Constipation Enoxaparin Sodium 40 mg 12/30/24 09:00 Enoxaparin 40 Mg/0.4 Ml Syringe SQ DAILY [facility] Ceftriaxone Sodium 2 gm/ 50 mls @ 100 mls/hr 12/31/24 09:00 Sodium Chloride IVPB 01/03/25 09:29 Q24HR [facility] Protocol Sodium Chloride 1,000 mls @ 75 mls/hr 12/30/24 00:45 12/30/24 06:13 Saline 0.9% IV 75 mls/hr .[id number] [facility] Administration Melatonin 3 mg 12/30/24 00:31 Melatonin 3 Mg Tablet PO HS PRN Insomnia Miscellaneous Information 1 each 12/30/24 00:31 Pneumonia Protocol Utilized 1 Each Misc PO ONCE PRN Per Protocol Naloxone HCl 0.2 mg 12/30/24 00:31 Naloxone 0.4 Mg/Ml 1 Ml Vial IV Q2M PRN Opioid Reversal Nicotine 1 patch 12/30/24 09:00 Nicotine 14mg/24hr Patch TRANSDERM DAILY [facility] Nitroglycerin 0.4 mg 12/29/24 21:45 Nitroglycerin Sl Tabs 0.4 Mg Tab SUBLINGUAL Q5M PRN Chest Pain Ondansetron HCl 4 mg 12/30/24 00:31 Ondansetron 4 Mg/2 Ml Vial IVP Q8HR PRN Nausea And Vomiting Intake and Output 12/29/24 12/30/24 12/30/24 22:59 06:59 14:59 Other: Voiding Method Toilet # Voids 1 Weight 62.142 kg 62.142 kg 12/29/24 18:45 12/29/24 18:45
--- NOTE | 2024-12-30 15:22 | P.DS ---
Providers Date of admission: 12/29/24 21:48 Expected date of discharge: 12/30/24 Attending physician: Maritza Ott MD Consults: 12/29/24 21:45 Consult Physician Urgent Consulting Provider: Bartolome Lopes Consult Reason/Comments: chest pain Do you want consulting provider notified?: Yes Primary care physician: Kendall Mojica [facility] Course: Discharge Diagnosis: Community-acquired pneumonia, patient received 2-day course of IV antibiotics with azithromycin and Rocephin. Patient being discharged home with Ventolin inhaler, nicotine patch, prednisone 50 mg daily x 5 days, and doxycycline 100 mg twice daily for an additional 3 days to total a 5-day treatment course. Follow- up outpatient with PCP in 1 to 2 days and recommended outpatient follow-up with sanding machine buffer for pulmonary function tests as suspect underlying undiagnosed COPD. Pleuritic chest pain, secondary to pleurisy acute coronary event ruled out. Cardiology recommending discharging patient home on aspirin 81 mg daily and atorvastatin 40 mg daily and following up with primary utilization review nurse Dr. Herrera in 1 week. 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 WBC count 3.4 and hemoglobin of 10.3 on discharge. Influenza A, likely positive testing from recent infection as patient reports symptoms began 3 weeks ago. Nicotine dependence, recommend smoking cessation. History of CAD status post stenting GERD Rectal cancer, patient completed chemotherapy in November and currently undergoing radiation therapy. Patient to continue to follow-up outpatient with oncologist and radiation oncologist as scheduled. Hospital Course: Patient is a very pleasant 69-year-old female with a past medical history of CAD status post stenting, GERD, nicotine dependence, recently diagnosed rectal cancer. She presented to the emergency department on 12/29/2024 with a chief complaint of pleuritic chest pain. Patient reports 3 weeks ago she had an upper respiratory infection with sore throat, body aches, cough and runny nose and productive cough progressively worsening over the past 10 days accompanied by pleuritic chest pain worse upon taking a deep breath. Patient reports taking [id number] cough and cold medication and not being seen by provider during this 3-week progressive illness. Upon arrival to our facility, patient underwent evaluation in the emergency department. Vital signs upon arrival show blood pressure 131/73, heart rate 87, respiratory rate 18, temp 97.8 F, and SpO2 of 93% on room air. EKG completed showing normal sinus rhythm at 86 bpm with no significant T wave or ST abnormality showing no signs of acute ischemia upon personal review and interpretation. Labs completed and reviewed. CBC showing bicytopenia with hemoglobin of 10.9 and WBC count of 3.5, appears to be a chronic and stable finding. Coagulation profile normal findings. BMP showing sodium 132 otherwise normal findings. Glucose 84. Magnesium 1.8. Liver profile unremarkable. Troponin was negative at less than 0.012. Influenza A was positive however patient reports symptoms began 3 weeks agp. Chest x-ray completed showing elevation of the left hemidiaphragm with right basilar patchy airspace opacities concerning for atelectasis versus pneumonia. Patient was started on IV antibiotics with Rocephin and Zithromax and admitted under services with consultation to cardiology. Troponins were trended all negative at less than 0.012 x 3 draws. Repeat morning chest x-ray showing mild trace left effusion otherwise negative for acute process. Patient seen and fully evaluated at bedside this morning she reports feeling much better and wanting to go home. Morning SpO2 only 90% on room air. Patient was given a single dose of IV steroids with Solu-Medrol 125 mg and encouraged to ambulate and upon reevaluation this afternoon patient continues to report feeling much better and ready to go home. Family at bedside in agreement. Patient's SpO2 94% on room air at rest and with ambulation. Patient being discharged home with Ventolin inhaler, aspirin, nicotine patch, prednisone 50 mg daily x 5 days, and doxycycline 100 mg twice daily for an additional 3 days to total a 5-day treatment course. Patient to follow-up outpatient with PCP in 1 to 2 days, utilization review nurse in 1 week, and sanding machine buffer in 1 week Physical exam: Vital signs reviewed and stable. General: Nontoxic, no distress and appears stated age. Derm: Skin warm and dry, normal coloration for ethnicity. Head: Atraumatic, normocephalic and symmetric. Eyes: EOM's intact, no lid lag, and anicteric sclera Mouth: no lip lesions, mucus membranes moist Cardiovascular: regular rate and rhythm with normal S1S2, no murmur, positive posterior tibial pulses bilaterally, and cap refill < 2 seconds. Lungs: Respirations even, regular, and unlabored on room air. Lungs slightly diminished with soft expiratory wheezes, no rhonchi, rales, or crackles noted. No accessory muscle usage. Abdominal: soft, nontender to palpation, no guarding, no appreciable organomegaly Ext: ROM intact. No gross muscle atrophy, no edema, no contractures Neuro: Speech clear, face symmetrical and CN II-XII grossly intact with no noted focal neuro deficits Psych: Alert and oriented to person, place, time, and situation. Appropriate and pleasant affect. A total of 35 minutes of time were spent preparing this complex discharge summary. Pt was discharged on 12/30/2024 at 3:20 PM. Patient was seen independently by Nurse Practitioner. This document was prepared using [employer] dictation software. Please allow for errors in veneer gluer while rare they do occur. Ryan Guillen NP rendered care for this patient independently, reviewed the findings and plan as documented in the note above. I did not physically speak with or examine the patient on this date. Patient Condition at Discharge: Stable Plan - Discharge Summary Discharge Rx Participant: No New Discharge Prescriptions: New Albuterol Inhaler [Ventolin Hfa Inhaler] 2 puff INHALATION Q6H PRN 30 Days #1 inh PRN Reason: Shortness Of Breath Or Wheezing Aspirin 81 mg PO DAILY 30 Days #30 tab Nicotine 14Mg/24Hr Patch [Habitrol] 1 patch TRANSDERM DAILY 30 Days #30 patch Atorvastatin [Lipitor] 40 mg PO DAILY 30 Days #30 tab predniSONE 50 mg PO DAILY 5 Days #5 tab Doxycycline [Vibramycin] 100 mg PO BID 3 Days #6 capsule Continue HYDROcodone/APAP 5-325MG [[place] 5-325] 1 tab PO QID Discharge Medication List HYDROcodone/APAP 5-325MG [[place] 5-325] 1 tab PO QID 12/29/24 [History] Albuterol Inhaler [Ventolin Hfa Inhaler] 2 puff INHALATION Q6H PRN 30 Days #1 inh 12/30/24 [Rx] Aspirin 81 mg PO DAILY 30 Days #30 tab 12/30/24 [Rx] Atorvastatin [Lipitor] 40 mg PO DAILY 30 Days #30 tab 12/30/24 [Rx] Doxycycline [Vibramycin] 100 mg PO BID 3 Days #6 capsule 12/30/24 [Rx] Nicotine 14Mg/24Hr Patch [Habitrol] 1 patch TRANSDERM DAILY 30 Days #30 patch 12/30/24 [Rx] predniSONE 50 mg PO DAILY 5 Days #5 tab 12/30/24 [Rx] Follow up Appointment(s)/Referral(s): Zee Jj MD [STAFF PHYSICIAN] - 1 Week (Recommend calling office on wednesday to schedule appointment for eval by pulmonoligist and pulmonary function tests) Kendall Mojica MD [Primary Care Provider] - 1-2 days Magnus Trimble MD [STAFF PHYSICIAN] - 1 Week Patient Instructions/Handouts: Pleurisy (DC), How to Stop Smoking (DC), Community Acquired Pneumonia (DC) Activity/Diet/Wound Care/Special Instructions: Activity: As tolerated. Take breaks as needed. Diet: Heart healthy diet. Special Instructions: Take all of your medications as directed and remember to keep all of your doctor's appointments and follow-up as needed. Thank you for allowing us to participate in your care, it was truly a pleasure having you for our patient!!! Discharge Disposition: HOME SELF-CARE
--- NOTE | 2024-12-30 15:29 | P.DS ---
Providers Date of admission: 12/29/24 21:48 Expected date of discharge: 12/30/24 Attending physician: Maritza Ott MD Consults: 12/29/24 21:45 Consult Physician Urgent Consulting Provider: Bartolome Lopes Consult Reason/Comments: chest pain Do you want consulting provider notified?: Yes Primary care physician: Kendall Mojica Patient Condition at Discharge: Fair Plan - Discharge Summary Discharge Rx Participant: No New Discharge Prescriptions: New Albuterol Inhaler [Ventolin Hfa Inhaler] 2 puff INHALATION Q6H PRN 30 Days #1 inh PRN Reason: Shortness Of Breath Or Wheezing Aspirin 81 mg PO DAILY 30 Days #30 tab Nicotine 14Mg/24Hr Patch [Habitrol] 1 patch TRANSDERM DAILY 30 Days #30 patch Atorvastatin [Lipitor] 40 mg PO DAILY 30 Days #30 tab predniSONE 50 mg PO DAILY 5 Days #5 tab Doxycycline [Vibramycin] 100 mg PO BID 3 Days #6 capsule Continue HYDROcodone/APAP 5-325MG [[place] 5-325] 1 tab PO QID Discharge Medication List HYDROcodone/APAP 5-325MG [[place] 5-325] 1 tab PO QID 12/29/24 [History] Albuterol Inhaler [Ventolin Hfa Inhaler] 2 puff INHALATION Q6H PRN 30 Days #1 inh 12/30/24 [Rx] Aspirin 81 mg PO DAILY 30 Days #30 tab 12/30/24 [Rx] Atorvastatin [Lipitor] 40 mg PO DAILY 30 Days #30 tab 12/30/24 [Rx] Doxycycline [Vibramycin] 100 mg PO BID 3 Days #6 capsule 12/30/24 [Rx] Nicotine 14Mg/24Hr Patch [Habitrol] 1 patch TRANSDERM DAILY 30 Days #30 patch 12/30/24 [Rx] predniSONE 50 mg PO DAILY 5 Days #5 tab 12/30/24 [Rx] Follow up Appointment(s)/Referral(s): Zee Jj MD [STAFF PHYSICIAN] - 1 Week (Recommend calling office on wednesday to schedule appointment for eval by pulmonoligist and pulmonary function tests) Kendall Mojica MD [Primary Care Provider] - 1-2 days Magnus Trimble MD [STAFF PHYSICIAN] - 1 Week Patient Instructions/Handouts: Pleurisy (DC), How to Stop Smoking (DC), Community Acquired Pneumonia (DC) Activity/Diet/Wound Care/Special Instructions: Activity: As tolerated. Take breaks as needed. Diet: Heart healthy diet. Special Instructions: Take all of your medications as directed and remember to keep all of your doctor's appointments and follow-up as needed. Thank you for allowing us to participate in your care, it was truly a pleasure having you for our patient!!!
[2024-12-31] MEDS ORDERED: predniSONE 50 MG TAB PO SCH (09:00)
== END 2024-12-30 16:47 | disposition home or self-care (01) ==
LOC: EC 16:57 → 6NMEDSUR 21:48
PROVIDERS: ADMIT Internal Medicine; ATTEND Internal Medicine
DX: J10.00 Influenza due to other identified influenza virus with unspecified type of pneumonia (principal); J44.0 Chronic obstructive pulmonary disease with (acute) lower respiratory infection; E87.1 Hypo-osmolality and hyponatremia; C21.8 Malignant neoplasm of overlapping sites of rectum, anus and anal canal; I25.10 Atherosclerotic heart disease of native coronary artery without angina pectoris; K21.9 Gastro-esophageal reflux disease without esophagitis; D64.9 Anemia, unspecified; R09.1 Pleurisy; F17.210 Nicotine dependence, cigarettes, uncomplicated; I25.2 Old myocardial infarction; Z79.891 Long term (current) use of opiate analgesic; Z79.899 Other long term (current) drug therapy; Z88.6 Allergy status to analgesic agent; Z11.52 Encounter for screening for COVID-19; Z11.59 Encounter for screening for other viral diseases; Z95.5 Presence of coronary angioplasty implant and graft; Z71.6 Tobacco abuse counseling
CPT/HCPCS: 96365; 96366; 96367; 96372; 96375; 96376; 99285; 36415; 93005; 80061; 80053; 80048; 87449; 83735; 84484 ×2; 85025; 85027; 85610; 85730; 87070; 87636; 71046 ×2; G0378 ×2; J0456; J1642; J0696 ×2; J2919

== ENCOUNTER → 2025-02-08 | Outpatient (CLI) | payer MEDICARE, OTHER ==
--- NOTE | 2025-02-09 17:20 | PE ---
EXAMINATION TYPE: PET CT fusion skull to thigh DATE OF EXAM: 02/09/2025 CLINICAL INDICATION:Female, 69 years old with history of C21.8 RECTUM CANCER; TECHNIQUE: Following the intravenous administration of 10.03 mCi of F-18 FDG, whole body images are performed from the skull base to the midthigh. Images are reviewed on the computer in the coronal, axial, and sagittal planes. Reconstructed rotating images are created on independent workstation and reviewed on the computer. A non-contrast CT is performed in conjunction with the PET scan. Glucose level 100 mg/dL CT DLP: 445 mGycm, Automated exposure control for dose reduction was used. COMPARISON: CT 11/29/2024, PET/CT 09/18/2024, MRI: None FINDINGS: Mediastinal SUV mean is 2.1. Hepatic parenchyma SUV mean is 2.5. SKULL BASE AND NECK: No suspicious radiotracer activity. CHEST, MEDIASTINUM, AND HILAR REGION: No suspicious radiotracer activity. ABDOMEN AND PELVIS: Focal radiotracer activity within the adrenal region the maximum SUV of 5.4. Previously 16.4. MUSCULOSKELETAL STRUCTURES: Diffuse mild radiotracer uptake within the osseous structures likely related to posttreatment change. OTHER CT: Bilateral aphakia. Right anterior chest wall Mediport catheter with distal tip terminating in the mid SVC. Scattered calcified granulomas within the lungs. Small coronary artery calcifications . Mild atelectatic calcification of the aorta and its branches. Peripherally calcified hepatic granul gage is present within the pelvis measuring up to 1.2 cm. Few subcentimeter hypodense foci within the liver which are too small to characterize. Sigmoid diverticulosis without evidence for acute divertic ulitis. Biapical pleural parenchymal scarring. Mild centrilobular and paraseptal emphysematous change s. A few stable scattered pulmonary micronodules measuring up to 4 mm. No corresponding FDG activity however size limits evaluation. Multilevel degenerative disc disease. Left lower lobe subsegmental at electasis. IMPRESSION: 1. Positive response to treatment with decrease focal radiotracer activity within the anal region re lated to known malignancy. No other suspicious FDG activity to suggest metastasis. 2. Few stable scattered pulmonary micronodules without suspicious FDG activity however these are bel ow the sensitivity of PET/CT. Follow-up CT chest in 3 months is recommended. [facility], , 02/09/2025 5:17 PM
== END | disposition home or self-care (01) ==
LOC: RADPETMAIN 11:08
PROVIDERS: ATTEND Radiology Radiation Oncology
DX: C21.8 Malignant neoplasm of overlapping sites of rectum, anus and anal canal (principal); C21.1 Malignant neoplasm of anal canal; C77.9 Secondary and unspecified malignant neoplasm of lymph node, unspecified; R91.8 Other nonspecific abnormal finding of lung field
CPT/HCPCS: 78815; A9552

== ENCOUNTER → 2025-04-05 | Outpatient (CLI) | payer MEDICARE ==
[2025-04-05 12:06] LABS: Basophils # (A) 0.01 10*3/uL (0.00-0.10); Basophils % (A) 0.3 %; Eosinophils # (A) 0.08 10*3/uL (0.04-0.35); Eosinophils % (A) 2.2 %; HCT 33.4 % (37.2-46.3); HGB 11.4 g/dL (12.0-15.0); Lymphocytes # (A) 0.68 10*3/uL (0.90-5.00); Lymphocytes % (A) 18.4 %; MCH 30.5 pg (27.0-32.0); MCHC 34.1 g/dL (32.0-37.0); MCV 89.3 fL (80.0-97.0); Mean Platelet Volume 8.8 fL (9.5-12.2); Monocytes # (A) 0.43 10*3/uL (0.20-1.00); Monocytes % (A) 11.6 %; Neutrophils # (A) 2.49 10*3/uL (1.80-7.70); Neutrophils % (A) 67.2 %; Platelet Count 254 10*3/uL (140-440); RBC 3.74 10*6/uL (4.10-5.20); RDW 13.8 % (11.5-14.5)
[2025-04-05 12:29] LABS: ALT 11 U/L (4-34); AST 18 U/L (14-36); African American GFR (CKD) 73 (>60 ml/min/1.73 sqM); Albumin/Globulin Ratio 1.7; Alkaline Phosphatase 64 U/L (38-126); Amylase 50 U/L (30-110); Anion Gap 6 mmol/L; Blood Urea Nitrogen 22 mg/dL (7-17); Calcium 9.5 mg/dL (8.4-10.2); Carbon Dioxide 26 mmol/L (22-30); Chloride 104 mmol/L (98-107); Globulin 2.3 g/dL; Glucose 108 mg/dL (74-99); Lipase 97 U/L (23-300); Non-African American GFR(CKD) 64 (>60 ml/min/1.73 sqM); Potassium 4.3 mmol/L (3.5-5.1); Sodium 136 mmol/L (137-145); Total Bilirubin 0.5 mg/dL (0.2-1.3); Total Protein 6.3 g/dL (6.3-8.2)
[2025-04-05 12:47] LABS: C Reactive Protein 0.5 mg/dL (<1.0)
--- NOTE | 2025-04-05 13:55 | CT ---
EXAMINATION TYPE: CT abdomen pelvis w con CT DLP: 492.40 mGycm, Automated exposure control for dose reduction was used. DATE OF EXAM: 04/05/2025 1:26 PM COMPARISON: PET CT 02/09/2025 CLINICAL INDICATION:Female, 70 years old with history of R10.12 LEFT UPPER QUADRANT PAIN; luq pain TECHNIQUE: Standard CT of the abdomen and pelvis following the administration of 100 cc of Isovue 3 00 IV contrast material. Coronal and sagittal reformats were performed. FINDINGS: LOWER CHEST: The visualized lungs are clear. Elevation of the left hemidiaphragm. ABDOMEN LIVER: Multiple subcentimeter hypoattenuating structures are demonstrated throughout the liver, which are too small to accurately characterize but statistically likely to represent simple hepatic cysts GALLBLADDER AND BILE DUCTS: Contracted gallbladder. No biliary ductal dilatation. PANCREAS: Unremarkable. SPLEEN: Unremarkable. ADRENAL GLANDS: Unremarkable. KIDNEYS AND URETERS: No evidence of hydronephrosis or renal calculus. The kidneys enhance symmetrical ly. Contrast allergy within both collecting systems on the delayed phase. Lobulated appearance of bot h kidneys PELVIS BLADDER: Unremarkable REPRODUCTIVE: Unremarkable. ABDOMEN & PELVIS STOMACH AND BOWEL: Stomach appears unremarkable. Proximal duodenal diverticulum.Sigmoid diverticulosi s without evidence for acute diverticulitis. No visualized focal bowel wall thickening or surrounding inflammatory changes. No evidence of bowel obstruction. PERITONEUM: No evidence of pneumoperitoneum or free fluid. Stable peritoneal mice within the right pe lvis. VASCULATURE: Mild atherosclerotic calcifications are present throughout the abdominal aorta and its b ranches. No evidence of aortic aneurysm. MUSCULOSKELETAL: No acute osseous abnormalities. Mild S-shaped scoliotic curvature of the thoracolumb ar spine. Grade 1 anterolisthesis of L4 on L5 without evidence of pars defects. Grade 1 retrolisthesi s of L1 on L2 without pars defects. Moderate multilevel degenerative disc disease. LYMPH NODES: No evidence for lymphadenopathy. SOFT TISSUE/ABDOMINAL WALL: Unremarkable IMPRESSION: 1. No CT evidence for acute abdominal/pelvic process. 2. Sigmoid diverticulosis without evidence for acute diverticulitis. [facility], , 04/05/2025 1:53 PM
[2025-04-05 19:26] LABS: Erythrocyte Sedimentation Rate 21 mm/Hr (0-30)
== END | disposition home or self-care (01) ==
LOC: RADCTMAIN 11:22
PROVIDERS: ATTEND Family Medicine
DX: R10.12 Left upper quadrant pain (principal); K57.30 Diverticulosis of large intestine without perforation or abscess without bleeding
CPT/HCPCS: 80053; 85652; 82150; 83690; 85025; 86140; 74177; 36415; Q9967

== ENCOUNTER → 2025-04-26 | Outpatient (CLI) | payer MEDICARE ==
--- NOTE | 2025-04-26 07:39 | CTL ---
EXAMINATION TYPE: CT Low Dose Lung DATE OF EXAM: 04/26/2025 6:48 AM COMPARISON: 02/08/2025 CLINICAL INDICATION: Female, 70 years old with history of Z12.2, F17.210 NICOTINE DEPENDENCE, CIGARET VAMSI, UN; current smoker, 1/2 pack a day for 40 years, history of tobacco use. TECHNIQUE: Multiple axial non-contrast scans were obtained from approximately the lung apices through the upper abdomen. Coronal and sagittal reformatted images were obtained. Low dose technique was uti lized. MIP were created on a separate workstation and submitted for review. CT DLP: 71.60 mGycm, Automated exposure control for dose reduction was used. CT Contrast: Contrast used: None Oral contrast used: None FINDINGS: Lack of intravenous contrast and low dose technique limits the evaluation of the vascular and soft ti ssue structures. LUNGS: No evidence of pulmonary fibrosis. No evidence of focal consolidation, pneumothorax or pleural effusion. Centrilobular emphysema changes. Nodules: Scattered calcified nodules in the right lung apex.r RUL: None. RML: None. RLL: 5 mm series 4 image 169, nhung RUSSELL: 6 mm series 4 image 3, stable. LLL: None. AIRWAY: Patent and unremarkable. HEART: Size within normal limits. Mild coronary artery calcifications present. MEDIASTINUM: No gross evidence of adenopathy. VASCULATURE: Atherosclerotic calcifications are present throughout the aorta and its branches. MUSCULOSKELETAL: Moderate disc degeneration changes are present throughout the thoracolumbar spine. SOFT TISSUES/LYMPH NODES: Unremarkable. LOWER NECK: No significant findings. UPPER ABDOMEN: No significant findings. IMPRESSION: 1. No clinically significant pulmonary nodules. 2. Mild emphysema. 3. Elevated left diaphragm similar prior. Correlate for phrenic nerve injury. CT LUNG RAD AND CT CHEST RECOMMENDATION: Lung-Rad 2 Benign Appearance or Behavior: Continue annual sc reening with LDCT in 12 months. S Modifier (other clinically significant findings): None Recommend smoking cessation (if current smoker), or continuation of smoking cessation (if prior smoke r). Annual screening for lung cancer with low-dose computed tomography is recommended in adults ages 55 to 77 years who have a 30 pack-year smoking history and currently smoke or have quit within the pa st 15 years. Screening should be discontinued once a person has not smoked for 15 years or develops a health problem that substantially limits life expectancy or the ability or willingness to have curat zachary lung surgery. Lung rads 2021 [email or web address] [facility], , 04/26/2025 7:37 AM
== END | disposition home or self-care (01) ==
LOC: RADCTMAIN 06:27
PROVIDERS: ATTEND Internal Medicine
DX: Z12.2 Encounter for screening for malignant neoplasm of respiratory organs (principal); F17.210 Nicotine dependence, cigarettes, uncomplicated; J43.2 Centrilobular emphysema
CPT/HCPCS: 71271

== ENCOUNTER → 2025-05-04 | Outpatient (CLI) | payer MEDICARE ==
--- NOTE | 2025-05-06 16:18 | PE ---
EXAMINATION TYPE: PET CT fusion skull to thigh DATE OF EXAM: 05/04/2025 CLINICAL INDICATION:Female, 70 years old with history of C21.8 anal ca; TECHNIQUE: Following the intravenous administration of 3.0 mCi of F-18 FDG, whole body images are p erformed from the skull base to the Mid thigh. Images are reviewed on the computer in the coronal, a xial, and sagittal planes. Reconstructed rotating images are created on independent workstation and reviewed on the computer. A non-contrast CT is performed in conjunction with the PET scan. Glucose level 103 mg/dL CT DLP: 10.27 mGycm, Automated exposure control for dose reduction was used. COMPARISON: CT None, PET/CT 02/09/2025., MRI: None FINDINGS: Mediastinal SUV mean is 1.9. Hepatic parenchyma SUV mean is 2.2. SKULL BASE AND NECK: No suspicious radiotracer activity. CHEST, MEDIASTINUM, AND HILAR REGION: No suspicious radiotracer activity. ABDOMEN AND PELVIS: No suspicious radiotracer activity. No suspicious uptake around the anus or rectum. Some probable radiotracer activity in the gluteal nate ft likely artifact. Anus max SUV 3.1. No lymphadenopathy identified. MUSCULOSKELETAL STRUCTURES: No suspicious radiotracer activity. OTHER CT: Scattered calcified illness of the lungs. Scattered colonic diverticula. Mild centrilobular emphysema changes. Mild paraseptal emphysema changes. IMPRESSION: No suspicious radiotracer activity. No abnormal uptake within the rectum/anus. No enlarged FDG avid l ymph nodes identified. [facility], , 05/06/2025 4:15 PM
== END | disposition home or self-care (01) ==
LOC: RADPETMAIN 06:13
PROVIDERS: ATTEND Radiology Radiation Oncology
DX: C21.1 Malignant neoplasm of anal canal (principal); C21.8 Malignant neoplasm of overlapping sites of rectum, anus and anal canal; C77.9 Secondary and unspecified malignant neoplasm of lymph node, unspecified
CPT/HCPCS: 78815; A9552